=== PATIENT | female | born 1940 | race Caucasian/White ===

== ENCOUNTER 2016-08-23 10:48 | Emergency (ER) | payer MEDICARE ==
--- NOTE | 2016-08-23 11:07 | ER Document Report ---
ED Medical Screen (RME) - General Stated Complaint: LEG PAIN Mode of Arrival: Ambulatory Information source: Patient Notes: Patient presents to the emergency department with complaints of right lower leg pain since she fell on 's Day. Patient did have an x-ray by her primary care provider and it was negative. Patient continues to complain of pain to the right knee right medial lower leg. Reports increased pain with pressure, touch. Reports DVT in left leg 2-3 years. Not on anticoagulants at this time. + smoker. Denies fever vomiting diarrhea I have greeted and performed a rapid initial assessment of this patient. A comprehensive ED assessment and evaluation of the patient, analysis of test results and completion of the medical decision making process will be conducted by additional ED providers. TRAVEL OUTSIDE OF THE [place] IN LAST 30 DAYS: No - Related Data Allergies/Adverse Reactions: No Known Allergies Allergy (Verified 08/23/16 11:01) Past Medical History - Past Medical History Cardiac Medical History: Reports: Hx Hypertension, Hx Pulmonary Embolism Denies: Hx Atrial Fibrillation, Hx Congestive Heart Failure, Hx Coronary Artery Disease, Hx Heart Attack, Hx Hypercholesterolemia, Hx Peripheral Vascular Disease, Hx Heart Murmur Pulmonary Medical History: Reports: Hx Bronchitis, Hx COPD, Hx Pneumonia Denies: Hx Asthma, Hx Respiratory Failure, Hx Sleep Apnea, Hx Tuberculosis Malignancy Medical History: Denies: Hx Lung Cancer GI Medical History: Reports: Hx Gastroesophageal Reflux Disease - at one point was taking Tums but not anymore. Denies: Hx Crohn's Disease, Hx Hiatal Hernia, Hx Irritable Bowel, Hx Liver Failure, Hx Ulcer Musculoskeltal Medical History: Reports Hx Arthritis - Lower back, Denies Hx Fibromyalgia, Denies Hx Muscular Dystrophy Traumatic Medical History: Denies: Hx Fractures Past Surgical History: Reports: Hx Breast Surgery - R lumpectomy, Hx Cholecystectomy, Hx Hysterectomy. Denies: Hx Appendectomy, Hx Bowel Surgery, Hx Section, Hx Colostomy, Hx Coronary Artery Bypass Graft, Hx Gastric Bypass Surgery, Hx Herniorrhaphy, Hx Mastectomy, Hx Pacemaker, Hx Tubal Ligation - Immunizations Hx Diphtheria, Pertussis, Tetanus Vaccination: Yes Physical Exam - Vital signs Vitals: Temp Pulse Resp BP Pulse Ox 97.5 F 101 H 18 151/77 H 93 08/23/16 10:56 08/23/16 10:56 08/23/16 10:56 08/23/16 10:56 08/23/16 10:56 Course - Vital Signs Vital signs: Temp Pulse Resp BP Pulse Ox 97.5 F 101 H 18 151/77 H 93 08/23/16 10:56 08/23/16 10:56 08/23/16 10:56 08/23/16 10:56 08/23/16 10:56
--- NOTE | 2016-08-23 13:26 | XCELERA REPORT ---
[address] [address] Lower Extremity Venous Evaluation Name: DEIDRE BAXTER Age: 76 yrs Gender: Female : 1940 Patient Status: Preadmit Patient Location: ER Study Date: 08/23/2016 11:30 AM Procedure: Color flow and duplex imaging of the veins of the right lower extremity as well as the left Common Femoral vein. Reason For Study: rme-RLL pain, hx DVT Ordering Physician: NORIS JO Performed By: Sondra Montemayor Right Sided Venous Evaluation Enlarged, echogenic Greater Saphenous around the knee, also adjacent varicosities. non compressible with no Colour flow. Normal vessel filling wall to wall, compression and augmentation as well as Colour flow down to the infrageniculate veins. Left Sided Venous Evaluation The left common femoral vein is fully compressible. Spontaneous and phasic flow is present in the left common femoral vein. Critical Findings Called in to the ER at 1200. Interpretation Summary No duplex evidence of DVT or obstruction in the right lower extremity nor in the left Common Femoral vein. Superficial phlebitis on the right. : NORIS JO > Maurizio Waggoner
--- NOTE | 2016-08-23 13:41 | ER Document Report ---
ED General - General Chief Complaint: Leg Pain Stated Complaint: LEG PAIN Mode of Arrival: Ambulatory TRAVEL OUTSIDE OF THE [place] IN LAST 30 DAYS: No - HPI Patient complains to provider of: right lower leg pain Notes: Patient coming in for right lower extremity pain ongoing since the middle of June after a fall. Patient able ambulate states that taking any medication at home for the pain. Denies any trauma. Patient was able to ambulate here. Denies fevers chills nausea vomiting. - Related Data Allergies/Adverse Reactions: No Known Allergies Allergy (Verified 08/23/16 11:01) Past Medical History - General Information source: Patient - Social History Smoking Status: Current Every Day Smoker Chew tobacco use (# tins/day): Yes Family History: None Patient has suicidal ideation: No Patient has homicidal ideation: No - Past Medical History Cardiac Medical History: Reports: Hx Hypertension, Hx Pulmonary Embolism Denies: Hx Atrial Fibrillation, Hx Congestive Heart Failure, Hx Coronary Artery Disease, Hx Heart Attack, Hx Hypercholesterolemia, Hx Peripheral Vascular Disease, Hx Heart Murmur Pulmonary Medical History: Reports: Hx Bronchitis, Hx COPD, Hx Pneumonia Denies: Hx Asthma, Hx Respiratory Failure, Hx Sleep Apnea, Hx Tuberculosis Renal/ Medical History: Denies: Hx Peritoneal Dialysis Malignancy Medical History: Denies: Hx Lung Cancer GI Medical History: Reports: Hx Gastroesophageal Reflux Disease - at one point was taking Tums but not anymore. Denies: Hx Crohn's Disease, Hx Hiatal Hernia, Hx Irritable Bowel, Hx Liver Failure, Hx Ulcer Musculoskeltal Medical History: Reports Hx Arthritis - Lower back, Denies Hx Fibromyalgia, Denies Hx Muscular Dystrophy Traumatic Medical History: Denies: Hx Fractures Past Surgical History: Reports: Hx Breast Surgery - R lumpectomy, Hx Cholecystectomy, Hx Hysterectomy. Denies: Hx Appendectomy, Hx Bowel Surgery, Hx Section, Hx Colostomy, Hx Coronary Artery Bypass Graft, Hx Gastric Bypass Surgery, Hx Herniorrhaphy, Hx Mastectomy, Hx Pacemaker, Hx Tubal Ligation - Immunizations Hx Diphtheria, Pertussis, Tetanus Vaccination: Yes Hx Pneumococcal Vaccination: 06/24/11 Review of Systems - Review of Systems Constitutional: No symptoms reported EENT: No symptoms reported Cardiovascular: No symptoms reported Respiratory: No symptoms reported Gastrointestinal: No symptoms reported Genitourinary: No symptoms reported Female Genitourinary: No symptoms reported Musculoskeletal: Other - Lower extremity pain right Skin: No symptoms reported Hematologic/Lymphatic: No symptoms reported Neurological/Psychological: No symptoms reported Physical Exam - Vital signs Vitals: Temp Pulse Resp BP Pulse Ox 97.5 F 101 H 18 151/77 H 93 08/23/16 10:56 08/23/16 10:56 08/23/16 10:56 08/23/16 10:56 08/23/16 10:56 Interpretation: Normal - General General appearance: Appears well, Alert - HEENT Head: Normocephalic, Atraumatic Eyes: Normal Pupils: PERRL - Respiratory Respiratory status: No respiratory distress Chest status: Nontender Breath sounds: Normal Chest palpation: Normal - Cardiovascular Rhythm: Regular Heart sounds: Normal auscultation Murmur: No - Abdominal Inspection: Normal Distension: No distension Bowel sounds: Normal Tenderness: Nontender Organomegaly: No organomegaly - Back Back: Normal, Nontender - Extremities General upper extremity: Normal inspection, Nontender, Normal color, Normal ROM , Normal temperature General lower extremity: Nontender, Normal color, Normal ROM, Normal temperature , Normal weight bearing. No: Normal inspection - Patient with palpable varicosities painful otherwise no overt swelling, Celine's sign - Neurological Neuro grossly intact: Yes Cognition: Normal Orientation: AAOx4 Gregory Coma Scale Eye Opening: Spontaneous Gregory Coma Scale Verbal: Oriented [place] Coma Scale Motor: Obeys Commands [place] Coma Scale Total: 15 Speech: Normal Motor strength normal: LUE, RUE, LLE, RLE Sensory: Normal - Psychological Associated symptoms: Normal affect, Normal mood - Skin Skin Temperature: Warm Skin Moisture: Dry Skin Color: Normal Course - Re-evaluation Re-evalutation: 08/23/16 13:52 Patient's ultrasound shows superficial thrombophlebitis which was confirmed with Dr. Waggoner reading. Patient was educated about disease pathology discharged home 08/23/16 13:52 - Vital Signs Vital signs: Temp Pulse Resp BP Pulse Ox 97.5 F 101 H 18 151/77 H 93 08/23/16 10:56 08/23/16 10:56 08/23/16 10:56 08/23/16 10:56 08/23/16 10:56 Discharge - Discharge Clinical Impression: Superficial thrombophlebitis Qualifiers: Superficial thrombophlebitis-Involved body area: lower extremity Laterality: right Qualified Code(s): I80.01 - Phlebitis and thrombophlebitis of superficial vessels of right lower extremity Condition: Good Instructions: Superficial Phlebitis ([facility]), Oral Narcotic Medication ([facility]) Additional Instructions: Your ultrasound today shows signs of superficial femoral phlebitis. Basically you have small blood clots in the superficial veins of the leg please apply warm compresses take anti-inflammatory medication I would recommend you're taking anti-inflammatory medication such as Motrin Naprosyn that she only take it for approximately 72 hours before you give herself approximately a 48 hour break to prevent any kind of gastritis Follow-up with your doctor in 1-2 weeks Prescriptions: Ibuprofen [Motrin 600 mg Tablet] 600 mg PO Q8HP PRN #90 tablet PRN Reason: Hydrocodone Bit/Acetaminophen [Hydrocodon-Acetaminophen 5-325] 1 each PO Q6 #20 tablet Forms: Return to Work
[2016-08-23 13:56] VITALS: BP 146/76
== END 2016-08-23 13:56 | disposition home or self-care (01) ==
LOC: ER 10:48
DX: I80.01 Phlebitis and thrombophlebitis of superficial vessels of right lower extremity (principal); M79.661 Pain in right lower leg; J44.9 Chronic obstructive pulmonary disease, unspecified; F17.200 Nicotine dependence, unspecified, uncomplicated; I10 Essential (primary) hypertension; Z86.711 Personal history of pulmonary embolism
CPT/HCPCS: 93971; 99283

== ENCOUNTER 2016-08-26 17:33 | Emergency (ER) | payer MEDICARE ==
[2016-08-26] MEDS ORDERED: ASPIRIN 81 MG TABLET, CHEWABLE PO ONE (17:36)
--- NOTE | 2016-08-26 17:54 | ER Document Report ---
ED Medical Screen (RME) - General Stated Complaint: CHEST PAIN Time seen by provider: 17:51 Mode of Arrival: Wheelchair Information source: Patient Notes: 76-year-old female presents to ED for complain of left sided chest pain shortness of breath. She states she had chest pain yesterday and last night it went away during the night and then this morning it started back again. His pain is getting worse. She has a history of COPD. She is on 3 L of oxygen nasal cannula. She also has a history of superficial blood clots in her legs that was diagnosed a couple days ago. She is not on blood thinners. Patient denies any history of heart problems CHF cholesterol. I have greeted and performed a rapid initial assessment of this patient. A comprehensive ED assessment and evaluation of the patient, analysis of test results and completion of medical decision making process will be conducted by an additional ED providers. TRAVEL OUTSIDE OF THE [place] IN LAST 30 DAYS: No - Related Data Allergies/Adverse Reactions: No Known Allergies Allergy (Verified 08/23/16 11:01) Past Medical History - Past Medical History Cardiac Medical History: Reports: Hx Hypertension, Hx Pulmonary Embolism Denies: Hx Atrial Fibrillation, Hx Congestive Heart Failure, Hx Coronary Artery Disease, Hx Heart Attack, Hx Hypercholesterolemia, Hx Peripheral Vascular Disease, Hx Heart Murmur Pulmonary Medical History: Reports: Hx Bronchitis, Hx COPD, Hx Pneumonia Denies: Hx Asthma, Hx Respiratory Failure, Hx Sleep Apnea, Hx Tuberculosis Renal/ Medical History: Denies: Hx Peritoneal Dialysis Malignancy Medical History: Denies: Hx Lung Cancer GI Medical History: Reports: Hx Gastroesophageal Reflux Disease - at one point was taking Tums but not anymore. Denies: Hx Crohn's Disease, Hx Hiatal Hernia, Hx Irritable Bowel, Hx Liver Failure, Hx Ulcer Musculoskeltal Medical History: Reports Hx Arthritis - Lower back, Denies Hx Fibromyalgia, Denies Hx Muscular Dystrophy Traumatic Medical History: Denies: Hx Fractures Past Surgical History: Reports: Hx Breast Surgery - R lumpectomy, Hx Cholecystectomy, Hx Hysterectomy. Denies: Hx Appendectomy, Hx Bowel Surgery, Hx Section, Hx Colostomy, Hx Coronary Artery Bypass Graft, Hx Gastric Bypass Surgery, Hx Herniorrhaphy, Hx Mastectomy, Hx Pacemaker, Hx Tubal Ligation - Immunizations Hx Diphtheria, Pertussis, Tetanus Vaccination: Yes Physical Exam - Vital signs Vitals: Temp Pulse Resp BP Pulse Ox 99.0 F 62 26 H 174/82 H 93 08/26/16 17:48 08/26/16 17:48 08/26/16 17:48 08/26/16 17:48 08/26/16 17:48 Course - Vital Signs Vital signs: Temp Pulse Resp BP Pulse Ox 99.0 F 62 26 H 174/82 H 93 08/26/16 17:48 08/26/16 17:48 08/26/16 17:48 08/26/16 17:48 08/26/16 17:48
[2016-08-26 18:13] LABS: HEMATOCRIT 44.4 % (36.0-47.0); HEMOGLOBIN 14.2 g/dL (12.0-15.5); HGB HCT DIFFERENCE -1.8; MEAN CORPUSCULAR HEMOGLOBIN 28.8 pg (27.0-33.4); MEAN CORPUSCULAR VOLUME 90 fl (80-97); RED BLOOD COUNT 4.94 10^6/uL (3.72-5.28); WHITE BLOOD COUNT 16.5 10^3/uL (4.0-10.5)
[2016-08-26 18:30] LABS: ALANINE AMINOTRANSFERASE 33 U/L (9-52); ALBUMIN 4.1 g/dL (3.5-5.0); ALKALINE PHOSPHATASE 105 U/L (38-126); ANION GAP 13 (5-19); ASPARTATE AMINO TRANSFERASE 28 U/L (14-36); BILIRUBIN,DIRECT 0.4 mg/dL (0.0-0.4); BILIRUBIN,TOTAL 1.2 mg/dL (0.2-1.3); BLOOD UREA NITROGEN 19 mg/dL (7-20); CALCIUM 10.1 mg/dL (8.4-10.2); CARBON DIOXIDE 32 mmol/L (22-30); CHLORIDE 96 mmol/L (98-107); CREATINE KINASE 40 U/L (30-135); CREATININE RESULT 1.02 mg/dL (0.52-1.25); GLUCOSE 144 mg/dL (75-110); POTASSIUM 4.3 mmol/L (3.6-5.0); SODIUM 141.4 mmol/L (137-145); TOTAL PROTEIN 7.1 g/dL (6.3-8.2)
[2016-08-26 18:35] LABS: BAND NEUTROPHILS % (MANUAL) 1 % (3-5); BASOPHILS % (MANUAL) 1 % (0-2); EOSINOPHILS % (MANUAL) 1 % (0-6); LYMPHOCYTES % (MANUAL) 6 % (13-45); TOTAL CELLS COUNTED 100
[2016-08-26 18:36] LABS: ANISOCYTOSIS SLIGHT; POLYCHROMASIA SLIGHT
[2016-08-26 18:37] LABS: PLATELET CLUMPS PRESENT
[2016-08-26 18:47] LABS: CREATINE KINASE MB < 0.22 ng/mL (<4.55); TROPONIN I < 0.012 ng/mL
[2016-08-26] MEDS ORDERED: IPRATROPIUM/ALBUTEROL 0.5-2.5 MG/3 ML AMPUL NEB ONE (19:56)
[2016-08-26] MEDS ORDERED: PREDNISONE 20 MG TABLET PO ONE (19:56)
[2016-08-26] MEDS ORDERED: AZITHROMYCIN 250 MG TABLET PO ONE (20:00)
--- NOTE | 2016-08-26 20:00 | ER Document Report ---
ED General - General Chief Complaint: Chest Pain Stated Complaint: CHEST PAIN Mode of Arrival: Wheelchair Notes: Patient is a 76-year-old female with past medical history of COPD with 2-3 L of oxygen dependence at all time who presents with increased shortness of breath and left-sided chest discomfort. States her symptoms are beginning progressively worse over the last 2 days. Describes the pain as being located along her left lower ribs. The pain is described as a sharp, stabbing pain it is intermittent in nature. States it seems to be worsened when she is having persistent coughing. Has had similar symptoms in the past with COPD exacerbations. She's been using her nebulizers at home without improvement of her symptoms. She has not seen her primary care doctor. She denies any history of pulmonary embolus but was recently diagnosed with a superficial lower extremity clot that did not require anticoagulation. She had an ultrasound less than one week ago for bilateral lower extremities did not demonstrate any evidence of DVT. She denies any pleuritic pain. No history of aortic pathology. TRAVEL OUTSIDE OF THE [place] IN LAST 30 DAYS: No - Related Data Allergies/Adverse Reactions: No Known Allergies Allergy (Verified 08/23/16 11:01) Past Medical History - General Information source: Patient - Social History Smoking Status: Current Every Day Smoker Chew tobacco use (# tins/day): No Frequency of alcohol use: None Drug Abuse: None Lives with: Family Family History: None Patient has suicidal ideation: No Patient has homicidal ideation: No - Past Medical History Cardiac Medical History: Reports: Hx Hypertension, Hx Pulmonary Embolism Denies: Hx Atrial Fibrillation, Hx Congestive Heart Failure, Hx Coronary Artery Disease, Hx Heart Attack, Hx Hypercholesterolemia, Hx Peripheral Vascular Disease, Hx Heart Murmur Pulmonary Medical History: Reports: Hx Bronchitis, Hx COPD, Hx Pneumonia Denies: Hx Asthma, Hx Respiratory Failure, Hx Sleep Apnea, Hx Tuberculosis Renal/ Medical History: Denies: Hx Peritoneal Dialysis Malignancy Medical History: Denies: Hx Lung Cancer GI Medical History: Reports: Hx Gastroesophageal Reflux Disease - at one point was taking Tums but not anymore. Denies: Hx Crohn's Disease, Hx Hiatal Hernia, Hx Irritable Bowel, Hx Liver Failure, Hx Ulcer Musculoskeltal Medical History: Reports Hx Arthritis - Lower back, Denies Hx Fibromyalgia, Denies Hx Muscular Dystrophy Traumatic Medical History: Denies: Hx Fractures Past Surgical History: Reports: Hx Breast Surgery - R lumpectomy, Hx Cholecystectomy, Hx Hysterectomy. Denies: Hx Appendectomy, Hx Bowel Surgery, Hx Section, Hx Colostomy, Hx Coronary Artery Bypass Graft, Hx Gastric Bypass Surgery, Hx Herniorrhaphy, Hx Mastectomy, Hx Pacemaker, Hx Tubal Ligation - Immunizations Hx Diphtheria, Pertussis, Tetanus Vaccination: Yes Hx Pneumococcal Vaccination: 06/24/11 Review of Systems - Review of Systems Notes: Constitutional: Negative for fever. HENT: Negative for sore throat. Eyes: Negative for visual changes. Cardiovascular: Positive for chest pain. Respiratory: Positive for shortness of breath. Gastrointestinal: Negative for abdominal pain, vomiting or diarrhea. Genitourinary: Negative for dysuria. Musculoskeletal: Negative for back pain. Skin: Negative for rash. Neurological: Negative for headaches, weakness or numbness. 10 point ROS negative except as marked above and in HPI. Physical Exam - Vital signs Vitals: Temp Pulse Resp BP Pulse Ox 99.0 F 62 26 H 174/82 H 93 08/26/16 17:48 08/26/16 17:48 08/26/16 17:48 08/26/16 17:48 08/26/16 17:48 Interpretation: Hypertensive, Tachypneic Notes: PHYSICAL EXAMINATION: GENERAL: Well-appearing, well-nourished and in no acute distress. HEAD: Atraumatic, normocephalic. EYES: Pupils equal round and reactive to light, extraocular movements intact, sclera anicteric, conjunctiva are normal. ENT: nares patent, oropharynx clear without exudates. Moist mucous membranes. NECK: Normal range of motion, supple without lymphadenopathy LUNGS: Mildly increased work of breathing. Somewhat diminished air movement bilaterally. Prolonged expiratory phase with end expiratory wheeze. Chest wall: Pain on palpation of the left lower ribs HEART: Regular rate and rhythm without murmurs ABDOMEN: Soft, nontender, normoactive bowel sounds. No guarding, no rebound. No masses appreciated. EXTREMITIES: Normal range of motion, no pitting or edema. No cyanosis. NEUROLOGICAL: No focal neurological deficits. Moves all extremities spontaneously and on command. PSYCH: Normal mood, normal affect. SKIN: Warm, Dry, normal turgor, no rashes or lesions noted. Course - Re-evaluation Re-evalutation: 08/26/16 19:59 Patient presents with a mild exacerbation of their baseline COPD. patient did also complain of some mild chest pain which appears to likely be musculoskeletal she does have reproducible pain on palpation of the area where she is complaining which is over her left lower ribs. The pain also completely resolved after treatment with nebulizers here in the emergency department. I do not suspect an acute pulmonary embolusin the absence of tachycardia, no pleuritic pain, and intermittent nature of that discomfort. Mild wheezing at time of presentation but vitals do not show significant hypoxemia or tachypnea. No retractions. Patient did clinically improve after receiving nebulizers here in the emergency department. Chest x-ray without evidence of an acute pneumonia. Laboratories do not show acute kidney injury or significant leukocytosis. Patient able to ambulate without any respiratory distress. Based on patient's overall reassuring assessment, I believe they are stable for outpatient management with steroids and oral antibiotics. Patient has nebulizers at home. I do not suspect an acute alternative pathology at this time based on history and exam including acute pulmonary embolus, ACS, pneumothorax, or aortic dissection. At this time will discharge with return precautions and follow-up recommendations. Verbal discharge instructions given a the bedside and opportunity for questions given. Medication warnings reviewed. Patient is in agreement with this plan and has verbalized understanding of return precautions and the need for primary care follow-up in the next 24-72 hours. - Vital Signs Vital signs: Temp Pulse Resp BP Pulse Ox 99.0 F 62 19 120/67 95 08/26/16 17:48 08/26/16 17:48 08/26/16 22:12 08/26/16 22:12 08/26/16 22:12 - Laboratory Result Diagrams: 08/26/16 18:00 08/26/16 18:00 Laboratory results interpreted by me: 08/26/16 08/26/16 18:00 18:00 WBC 16.5 H RDW 15.0 H Seg Neuts % (Manual) 88 H Band Neutrophils % 1 L Lymphocytes % (Manual) 6 L Abs Neuts (Manual) 14.7 H Chloride 96 L Carbon Dioxide 32 H Est GFR (Non-Af Amer) 53 L Glucose 144 H - Diagnostic Test Radiology reviewed: Image reviewed, Reports reviewed Radiology results interpreted by me: 08/26/16 22:19 Chest x-ray: No acute infiltrate or pneumothorax - EKG Interpretation by Me Additional EKG results interpreted by me: 08/27/16 03:34 Sinus tachycardia. Rate 109. No ST elevations or depressions. QTC is 399. PVCs are present Discharge - Discharge Clinical Impression: COPD exacerbation, Chest wall pain Condition: Good Disposition: HOME, SELF-CARE Additional Instructions: You were seen for a COPD exacerbation. Your symptoms improved with treatment here in the emergency department. However, it is very important that you return to the emergency department immediately if you began to have worsening difficulty breathing that does not respond to your normal home nebulizers. You are also being sent home on a five-day course of steroids that you should start taking tomorrow. Please also take the antibiotics as prescribed. Please also follow closely with your primary care physician. You should eturn to emergency department if you develop fever greater than 101, persistent cough, persistent vomiting, pass out, or any other symptoms that are concerning to you. Prescriptions: Azithromycin 250 mg PO DAILY #4 tablet Prednisone [Deltasone 20 mg Tablet] 3 tab PO DAILY 5 Days
[2016-08-26] MEDS ORDERED: OXYCODONE-ACETAMINOPHEN 5-325 MG TABLET PO ONE (20:01)
--- NOTE | 2016-08-26 20:45 | EKG REPORT ---
SEVERITY:- ABNORMAL ECG - SINUS TACHYCARDIA MULTIPLE VENTRICULAR PREMATURE COMPLEXES FIRST DEGREE AV BLOCK : Confirmed by: Stephania Haynes 26-Aug-2016 20:45:01
[2016-08-26 22:29] VITALS: BP 120/67
== END 2016-08-26 22:44 | disposition home or self-care (01) ==
LOC: ER 17:33
DX: J44.1 Chronic obstructive pulmonary disease with (acute) exacerbation (principal); R07.89 Other chest pain; Z99.81 Dependence on supplemental oxygen; F17.200 Nicotine dependence, unspecified, uncomplicated
CPT/HCPCS: 93005; 94640; 99285; 36415; 82553; 82550; 85025; 80053; 84484; 71010; 93010; A9270 ×5; J7512; J7620

== ENCOUNTER 2017-02-15 10:50 | Inpatient (IN) | payer MEDICARE ==
[2017-02-15] MEDS ORDERED: METHYLPREDNISOLONE INJ 125 MG/2 ML SDV IV ONE (11:27)
[2017-02-15] MEDS ORDERED: IPRATROPIUM/ALBUTEROL 0.5-2.5 MG/3 ML AMPUL NEB ONE (11:27)
[2017-02-15] MEDS ORDERED: PIPERACILLIN/TAZOBACTAM 3.375 GM VIAL IV ONE (11:28)
--- NOTE | 2017-02-15 11:33 | ER Document Report ---
ED Respiratory Problem - General Chief Complaint: Breathing Difficulty Stated Complaint: DIFFICULTY BREATHING Time Seen by Provider: 02/15/17 11:26 TRAVEL OUTSIDE OF THE [place] IN LAST 30 DAYS: No - HPI Notes: 77-year-old oxygen dependent female with history of COPD presents with increasing shortness of breath slowly over 4 days much worse in the last 2 days. She has a dry cough. Moderate symptoms worse with exertion. She uses oxygen at 2 L/min occasionally will increase to 3 if needed. Denies fever. She has noticed increased swelling of her left lower extremity with increased redness over the last week as well. Denies any new specific pain. - Related Data Allergies/Adverse Reactions: No Known Allergies Allergy (Verified 02/15/17 11:00) Past Medical History - Social History Smoking Status: Current Every Day Smoker Family History: None, Reviewed & Not Pertinent Patient has suicidal ideation: No Patient has homicidal ideation: No - Past Medical History Cardiac Medical History: Reports: Hx Hypertension, Hx Pulmonary Embolism Denies: Hx Atrial Fibrillation, Hx Congestive Heart Failure, Hx Coronary Artery Disease, Hx Heart Attack, Hx Hypercholesterolemia, Hx Peripheral Vascular Disease, Hx Heart Murmur Pulmonary Medical History: Reports: Hx Bronchitis, Hx COPD, Hx Pneumonia Denies: Hx Asthma, Hx Respiratory Failure, Hx Sleep Apnea, Hx Tuberculosis Renal/ Medical History: Denies: Hx Peritoneal Dialysis Malignancy Medical History: Denies: Hx Lung Cancer GI Medical History: Reports: Hx Gastroesophageal Reflux Disease - at one point was taking Tums but not anymore. Denies: Hx Crohn's Disease, Hx Hiatal Hernia, Hx Irritable Bowel, Hx Liver Failure, Hx Ulcer Musculoskeltal Medical History: Reports Hx Arthritis - Lower back, Denies Hx Fibromyalgia, Denies Hx Muscular Dystrophy Traumatic Medical History: Denies: Hx Fractures Past Surgical History: Reports: Hx Breast Surgery - R lumpectomy, Hx Cholecystectomy, Hx Hysterectomy. Denies: Hx Appendectomy, Hx Bowel Surgery, Hx Section, Hx Colostomy, Hx Coronary Artery Bypass Graft, Hx Gastric Bypass Surgery, Hx Herniorrhaphy, Hx Mastectomy, Hx Pacemaker, Hx Tubal Ligation - Immunizations Hx Diphtheria, Pertussis, Tetanus Vaccination: Yes Hx Pneumococcal Vaccination: 06/24/11 Review of Systems - Review of Systems -: Yes All other systems reviewed and negative Physical Exam - Vital signs Vitals: Temp Pulse Resp BP Pulse Ox 98.4 F 107 H 28 H 150/80 H 86 L 02/15/17 11:00 02/15/17 11:00 02/15/17 11:00 02/15/17 11:00 02/15/17 11:00 - Notes Notes: Physical Exam: GENERAL: VS as per nursing doc. chronically ill appearing in mild to moderate respiratory distress. Audible wheezing noted. HEAD: Atraumatic, normocephalic. EYES: Pupils equal round and reactive to light, extraocular movements intact, sclera anicteric, no conjunctival injection or discharge. ENT: Nares patent, oropharynx clear without exudates. Slightly dry mucous membranes. NECK: Normal range of motion, supple without lymphadenopathy. LUNGS: Breath sounds are coarse and diffuse wheezing is noted. Breath sounds are decreased bilaterally. HEART: Normal S1S2. Regular rate and rhythm without murmurs. Equal peripheral pulses. ABDOMEN: Soft, non-tender. EXTREMITIES: 4+ left lower extremity edema with erythema of the pretibial region. There is a minimal amount of serous drainage. 2-3+ right lower extremity edema. NEUROLOGICAL: Normal speech. Normal sensory and motor exams. No gross cerebellar abnormalities. PSYCH: Normal mood, normal affect. SKIN: Warm, dry, no cyanosis, left lower extremity lower extremity abrasion noted. Cap refill < 2 sec. Course - Re-evaluation Re-evalutation: 02/15/17 14:05 Patient is feeling much better overall. Still having some wheezing and still some mild shortness of breath. Her pH is normal though her PCO2 is slightly above where it normally is. I attempted to talk to Dr. Monzon but he was unavailable. We will call him back. 02/15/17 14:[address] Monzon who will come see the patient. Will place the patient on telemetry. - Vital Signs Vital signs: Temp Pulse Resp BP Pulse Ox 98.4 F 107 H 21 H 141/72 H 98 02/15/17 11:00 02/15/17 11:00 02/15/17 14:01 02/15/17 14:01 02/15/17 14:01 - Laboratory Result Diagrams: 02/15/17 11:14 02/15/17 11:14 Laboratory results interpreted by me: 02/15/17 02/15/17 02/15/17 11:14 11:14 11:14 RDW 16.2 H Seg Neutrophils % 89.3 H Lymphocytes % 5.6 L VBG pCO2 64.4 H VBG HCO3 36.1 H Carbon Dioxide 31 H Est GFR (Non-Af Amer) 59 L Glucose 153 H Direct Bilirubin 0.5 H - Diagnostic Test Radiology reviewed: Image reviewed, Reports reviewed - EKG Interpretation by Me Rhythm: NSR - Rate 94, first-degree AV block, no clear ischemia. QRS of normal duration. Discharge - Discharge Clinical Impression: COPD exacerbation, Cellulitis of left lower extremity Condition: Fair Disposition: ADMITTED INPATIENT Admitting Provider: Dr. Buchanan Unit Admitted: Telemetry Referrals: ASHOK WOOD MD [Primary Care Provider] - Follow up as needed
[2017-02-15 11:35] LABS: ABSOLUTE EOSINOPHILS # (AUTO) 0.1 10^3/uL (0.0-0.6); ABSOLUTE LYMPHOCYTES (AUTO) 0.5 10^3/uL (0.5-4.7); ABSOLUTE MONOCYTES (AUTO) 0.3 10^3/uL (0.1-1.4); ABSOLUTE NEUT (AUTO) 7.3 10^3/uL (1.7-8.2); BASOPHILS % (AUTO) 0.3 % (0-2); EOSINOPHILS % (AUTO) 1.4 % (0-6); HEMATOCRIT 39.4 % (36.0-47.0); HEMOGLOBIN 12.9 g/dL (12.0-15.5); HGB HCT DIFFERENCE -0.7; LYMPHOCYTES % (AUTO) 5.6 % (13-45); MEAN CORPUSCULAR HEMOGLOBIN 28.8 pg (27.0-33.4); MEAN CORPUSCULAR HGB CONC 32.7 g/dL (32.0-36.0); MEAN CORPUSCULAR VOLUME 88 fl (80-97); MONOCYTES % (AUTO) 3.4 % (3-13); RED BLOOD COUNT 4.47 10^6/uL (3.72-5.28); RED CELL DISTRIBUTION WIDTH 16.2 % (11.5-14.0); SEGMENTED NEUTROPHILS % (AUTO) 89.3 % (42-78); WHITE BLOOD COUNT 8.2 10^3/uL (4.0-10.5)
[2017-02-15 11:37] LABS: VENOUS BLOOD BASE EXCESS 8.5 mmol/L; VENOUS BLOOD HCO3 36.1 mmol/L (20-32); VENOUS BLOOD PCO2 64.4 mmHg (35-63); VENOUS BLOOD PH 7.37 (7.30-7.42)
[2017-02-15 11:44] LABS: PROTHROMBIN TIME 12.3 SEC (11.4-15.4)
[2017-02-15 11:50] LABS: ALANINE AMINOTRANSFERASE 22 U/L (9-52); ALBUMIN 4.1 g/dL (3.5-5.0); ALKALINE PHOSPHATASE 103 U/L (38-126); ANION GAP 9 (5-19); ASPARTATE AMINO TRANSFERASE 19 U/L (14-36); BILIRUBIN,DIRECT 0.5 mg/dL (0.0-0.4); BILIRUBIN,TOTAL 0.6 mg/dL (0.2-1.3); BLOOD UREA NITROGEN 13 mg/dL (7-20); CARBON DIOXIDE 31 mmol/L (22-30); CHLORIDE 99 mmol/L (98-107); CREATININE RESULT 0.92 mg/dL (0.52-1.25); GLUCOSE 153 mg/dL (75-110); POTASSIUM 4.7 mmol/L (3.6-5.0); TOTAL PROTEIN 7.2 g/dL (6.3-8.2)
--- NOTE | 2017-02-15 12:17 | RADIOLOGY REPORT (SQ) ---
EXAM DESCRIPTION: CHEST SINGLE VIEW COMPLETED DATE/TIME: 02/15/2017 12:09 pm REASON FOR STUDY: shortness of breath COMPARISON: 08/26/2016. EXAM PARAMETERS: NUMBER OF VIEWS: One view. TECHNIQUE: Single frontal radiographic view of the chest acquired. RADIATION DOSE: NA LIMITATIONS: None. FINDINGS: LUNGS AND PLEURA: Mild interstitial prominence. No opacities, masses or pneumothorax. No pleural effusion. MEDIASTINUM AND HILAR STRUCTURES: No masses. Contour normal. HEART AND VASCULAR STRUCTURES: Heart upper limits of normal in size. Normal vasculature. BONES: No acute findings. HARDWARE: None in the chest. OTHER: No other significant finding. IMPRESSION: NO ACUTE RADIOGRAPHIC FINDING IN THE CHEST. TECHNICAL DOCUMENTATION: JOB ID: [id number]
--- NOTE | 2017-02-15 12:53 | EKG REPORT ---
SEVERITY:- ABNORMAL ECG - SINUS RHYTHM FIRST DEGREE AV BLOCK : Confirmed by: Uri Parish MD 15-Feb-2017 12:53:14
[2017-02-15 14:20] LABS: APPEARANCE,URINE SLIGHTLY-CLOUDY; BILIRUBIN,URINE NEGATIVE (NEGATIVE); GLUCOSE, URINE NEGATIVE (NEGATIVE); KETONES,URINE NEGATIVE (NEGATIVE); LEUKOCYTE ESTERASE,URINE SMALL (NEGATIVE); NITRITE,URINE NEGATIVE (NEGATIVE); PROTEIN,URINE NEGATIVE (NEGATIVE); URINE SPECIFIC GRAVITY 1.004; UROBILINOGEN,URINE NEGATIVE mg/dL (<2.0)
--- NOTE | 2017-02-15 14:45 | XCELERA REPORT ---
[address] [address] Lower Extremity Venous Evaluation Name: DEIDRE BAXTER Age: 77 yrs Gender: Female : 1940 Patient Status: Emergency Patient Location: ER Study Date: 02/15/2017 12:08 PM Procedure: Color flow and duplex imaging of the veins of the left lower extremity as well as the right Common Femoral vein. Reason For Study: LLE swelling Ordering Physician: NAYELI MORTON Performed By: Kya Flores Right Sided Venous Evaluation The right common femoral vein is fully compressible. Spontaneous and phasic flow is present in the right common femoral vein. Left Sided Venous Evaluation extensive soft tissue edema in left leg. Normal vessel filling wall to wall, compression and augmentation as well as Colour flow down to the infrageniculate veins. Interpretation Summary No duplex evidence of DVT or obstruction in the left lower extremity nor in the right Common Femoral vein. : NAYELI MORTON [place]
[2017-02-15] MEDS ORDERED: ACETAMINOPHEN 325 MG TABLET PO PRN (15:22)
--- NOTE | 2017-02-15 15:47 | PDOC H&P ---
History of Present Illness Admission Date/PCP: 02/15/17 14:48 ASHOK WOOD MD History of Present Illness: DEIDRE BAXTER is a 77 year old white female with a past medical history significant for hypertension and COPD who presents to the service with complaints of shortness of breath and left lower extremity redness and swelling. The patient states that she is usually on oxygen at home at 2 L/min 24 hours a day. She states that over the last 2 days she has developed a dry cough and shortness of breath that has become progressively worse. She tried using her inhalers at home without any success. She contacted her primary care physician who prescribed her Zithromax and Solu-Medrol as an outpatient. The patient had only taken the medications for about a day when she felt worse and decided to come into the emergency room. In addition to this, the patient developed left lower extremity swelling or redness. She states she does not have a history of heart failure to account for her swelling but did have concerns that she could have a blood clot. She states that she has been eating and drinking well at home. Other than dyspnea on exertion and her left lower leg issues she has had no other troubles. Past Medical History Cardiac Medical History: Reports: Hypertension, Pulmonary Embolism Pulmonary Medical History: Reports: Bronchitis, Chronic Obstructive Pulmonary Disease (COPD), Pneumonia GI Medical History: Reports: Gastroesophageal Reflux Disease - at one point was taking Tums but not anymore Musculoskeltal Medical History: Reports: Arthritis - Lower back Psychiatric Medical History: Reports: None Past Surgical History Past Surgical History: Reports: Cholecystectomy, Hysterectomy Social History Information Source: Patient Smoking Status: Current Every Day Smoker - The patient currently smokes 1 pack every 3 days. Frequency of Alcohol Use: None Hx Recreational Drug Use: No Hx Prescription Drug Abuse: No Past Social History Note: Patient started smoking in her 30s. At most she would get up to 2 packs per day. - Advance Directive Resuscitation Status: Do Not Resuscitate Family History Family History: Malignancy Parental Family History Reviewed: Yes Children Family History Reviewed: Yes Sibling(s) Family History Reviewed.: Yes Medication/Allergy Home Medications: Albuterol Sulfate [Albuterol Sulfate 2.5mg/3 mL] 1 vial IH QIDP PRN 02/15/17 Albuterol Sulfate [Proair HFA] 2 puff IH Q4HP PRN 02/15/17 Aspirin [Aspirin 325 mg Tablet] 325 mg PO DAILY 02/15/17 Azithromycin [Zithromax] 250 mg PO ASDIR 02/15/17 Budesonide/Formoterol Fumarate [Symbicort Hfa 160-4.5 Mcg Inhaler 6 gm] 2 puff IH Q12 02/15/17 Fluticasone Propionate [Flonase Nasal Clanton 50 Mcg/Clanton 16 gm] 2 sprays NASL DAILYP PRN 02/15/17 Hydrochlorothiazide [Hydrodiuril 12.5 mg Capsule] 12.5 mg PO DAILY 02/15/17 Magnesium Oxide [Mag-Ox 400 mg Tablet] 400 mg PO DAILY 02/15/17 Methylprednisolone [Medrol Dosepack (4 mg/Tab) 21 Tab/Dosepak] 4 mg PO ASDIR Allergies/Adverse Reactions: No Known Allergies Allergy (Verified 02/15/17 11:00) Review of Systems Review of Systems: Review of systems is positive for that already mentioned in the HPI. In addition to this she denies unexplained weight loss or weight gain, fevers, chills, nausea, vomiting, diarrhea, constipation, blood in stool, blood in the urine, coughing up blood, throwing up blood, abdominal pain, visual disturbances other than needing eyeglasses, dizziness. She does however admit to arthritic pains that she says are usual for her. Physical Exam Vital Signs: Temp Pulse Resp BP Pulse Ox 98.4 F 107 H 21 H 141/72 H 98 02/15/17 11:00 02/15/17 11:00 02/15/17 14:01 02/15/17 14:01 02/15/17 14:01 GENERAL: This is a well-developed and nourished appearing obese white female resting in bed currently in no acute distress. HEENT: Normocephalic, atraumatic. Trachea is midline. Moist mucous membranes. mallampati 4. HEART: Tachycardic at the bedside. No murmurs, rubs or gallops. LUNGS: Coarse breath sounds bilaterally throughout with equal rise and fall of the chest. Breathing is not currently labored. ABDOMEN: Soft, nontender, nondistended, obese with normoactive bowel sounds EXTREMETIES: No clubbing, cyanosis. 2+ pitting edema bilaterally. 2+ peripheral pulses bilaterally. NEURO: Awake, alert and oriented 3. Cranial nerves II through XII are grossly intact. Skin: Patient's left lower extremity is quite red and erythematous. The redness extends from the ankle up through the shins. No outline has been made thus far around the area. Results Impressions: Chest X-Ray 02/15/17 11:21 IMPRESSION: NO ACUTE RADIOGRAPHIC FINDING IN THE CHEST. Assessment & Plan - Diagnosis (1) Acute and chronic respiratory failure with hypoxia Plan: Patient is currently on oxygen via nasal cannula. She is breathing easily at the moment. She was hypoxemic down to 86% down in the emergency room. She seems to be doing and feeling better now. Continue albuterol nebulizers every 4 hours for now. Continue the patient's Symbicort here in the hospital. Patient also has as needed nebulizer treatments on order as well. Her respiratory is secondary to underlying COPD exacerbation (2) COPD exacerbation Plan: At this time the patient is receiving albuterol nebulizers. She received a dose of Solu-Medrol down in the emergency room we will continue this at 40 twice a day. She had a dose of Zithromax as an outpatient and has been given Zosyn to cover not only for anything in the lung but also her lower extremity cellulitis. I agree with this for now. No addition of vancomycin for now. Monitor white blood cell count. (3) Cellulitis of left lower extremity Plan: Continue Zosyn. I will have the nursing staff outline the patient's cellulitis. Inspection of her toes does not reveal any obvious fungal elements. (4) GERD (gastroesophageal reflux disease) Plan: We will give PPI while here in the hospital. (5) HTN (hypertension) Plan: The patient cannot remember her antihypertensive medicationRight now. Her son will find out the name and let us know. Blood pressures at the bedside are 158/ 86. We will continue to monitor and have as needed's available. (6) Obesity Qualifiers: Body mass index: BMI 45.0-49.9 - Time Time Spent: 50 to 70 Minutes - Plan Summary Plan Summary: Patient is being admitted to the hospital for respiratory failure. If she is not appropriately admitted the risk is respiratory decompensation as an outpatient. Thank you
[2017-02-15] MEDS ORDERED: ENOXAPARIN SODIUM INJ 40 MG/0.4 ML DISP.SYRIN SUBCUT ONE (16:00)
[2017-02-15] MEDS ORDERED: PIPERACILLIN SODIUM/TAZOBACTAM 3.375 GM in NORMAL SALINE 100 ML IV SCH (18:00)
[2017-02-15] MEDS: IPRATROPIUM/ALBUTEROL 0.5-2.5 MG/3 ML AMPUL NEB PRN ×2 (18:34→23:40)
[2017-02-15] MEDS: PIPERACILLIN SODIUM/TAZOBACTAM 3.375 GM in DEXTROSE 5%-WATER 100 ML IV SCH ×2 (19:32→23:18)
[2017-02-15] MEDS: METHYLPREDNISOLONE INJ 40 MG/1 ML SDV IV SCH (22:02)
[2017-02-15] MEDS: BUDESONIDE/FORMOTEROL 160-4.5 MCG 60 PUFF/6 GM MDI IH SCH (22:02)
[2017-02-16 05:14] LABS: ABSOLUTE LYMPHOCYTES (AUTO) 0.4 10^3/uL (0.5-4.7); ABSOLUTE MONOCYTES (AUTO) 0.2 10^3/uL (0.1-1.4); BASOPHILS % (AUTO) 0.2 % (0-2); HEMATOCRIT 38.9 % (36.0-47.0); HEMOGLOBIN 12.7 g/dL (12.0-15.5); HGB HCT DIFFERENCE -0.8; LYMPHOCYTES % (AUTO) 6.1 % (13-45); MEAN CORPUSCULAR HEMOGLOBIN 28.7 pg (27.0-33.4); MEAN CORPUSCULAR HGB CONC 32.6 g/dL (32.0-36.0); MEAN CORPUSCULAR VOLUME 88 fl (80-97); MONOCYTES % (AUTO) 3.2 % (3-13); RED BLOOD COUNT 4.42 10^6/uL (3.72-5.28); RED CELL DISTRIBUTION WIDTH 15.9 % (11.5-14.0); SEGMENTED NEUTROPHILS % (AUTO) 90.5 % (42-78); WHITE BLOOD COUNT 6.6 10^3/uL (4.0-10.5)
[2017-02-16] MEDS: PIPERACILLIN SODIUM/TAZOBACTAM 3.375 GM in DEXTROSE 5%-WATER 100 ML IV SCH ×4 (05:21→23:55)
[2017-02-16 05:35] LABS: ANION GAP 11 (5-19); BLOOD UREA NITROGEN 17 mg/dL (7-20); CARBON DIOXIDE 31 mmol/L (22-30); CHLORIDE 98 mmol/L (98-107); CREATININE RESULT 1.01 mg/dL (0.52-1.25); POTASSIUM 4.7 mmol/L (3.6-5.0); SODIUM 139.7 mmol/L (137-145)
[2017-02-16 05:57] LABS: GLUCOSE 221 mg/dL (75-110)
[2017-02-16] MEDS: ASPIRIN 325 MG TABLET PO SCH (09:00)
[2017-02-16] MEDS: METHYLPREDNISOLONE INJ 40 MG/1 ML SDV IV SCH ×2 (09:01→21:11)
[2017-02-16] MEDS: LANSOPRAZOLE 30 MG TAB.RAP.DR PO SCH (09:01)
[2017-02-16] MEDS: ENOXAPARIN SODIUM INJ 40 MG/0.4 ML DISP.SYRIN SUBCUT SCH (09:02)
[2017-02-16] MEDS: BUDESONIDE/FORMOTEROL 160-4.5 MCG 60 PUFF/6 GM MDI IH SCH ×2 (09:03→21:11)
--- NOTE | 2017-02-16 09:23 | RADIOLOGY REPORT (SQ) ---
EXAM DESCRIPTION: CHEST PA/LAT COMPLETED DATE/TIME: 02/16/2017 8:09 am REASON FOR STUDY: sob COMPARISON: Chest films 02/15/2017, 08/26/2016, 07/24/2014 CT chest 03/18/2015 EXAM PARAMETERS: NUMBER OF VIEWS: two views TECHNIQUE: Digital Frontal and Lateral radiographic views of the chest acquired. RADIATION DOSE: NA LIMITATIONS: none FINDINGS: LUNGS AND PLEURA: No acute infiltrates. No pleural effusion. No pneumothorax. Mild increased interstitial markings around the periphery of both lungs right greater than left, stab le. MEDIASTINUM AND HILAR STRUCTURES: No masses or contour abnormalities. HEART AND VASCULAR STRUCTURES: Stable mild cardiomegaly. BONES: No acute findings. HARDWARE: Surgical clips right breast. OTHER: No other significant finding. IMPRESSION: No acute findings TECHNICAL DOCUMENTATION: JOB ID: [id number] [email or web address]- All Rights Reserved
[2017-02-16] MEDS: IPRATROPIUM/ALBUTEROL 0.5-2.5 MG/3 ML AMPUL NEB PRN ×2 (11:48→22:49)
--- NOTE | 2017-02-16 15:18 | PDOC PROGRESS REPORT ---
Subjective Progress Note for:: 02/16/17 Subjective:: This is a follow-up visit for COPD exacerbation. The patient was just received a nebulizer treatment. She is sitting on the side of her bed. She is a bit tachypneic. When asked how she feels however she says that she thinks that she is a bit better than yesterday. Chest x-ray was repeated and was negative. I have notified the patient that she has bacteria growing in her urine. Physical Exam Vital Signs: Temp Pulse Resp BP Pulse Ox 97.5 F 87 22 H 141/63 H 96 02/16/17 08:10 02/16/17 11:48 02/16/17 11:48 02/16/17 08:10 02/16/17 11:48 Intake & Output 02/15/17 02/16/17 02/17/17 06:59 06:59 06:59 Intake Total 720 Balance 720 Weight 112.3 kg GENERAL: This is a well-developed and nourished appearing obese white female resting on the side of her bed currently in no acute distress. HEART: Regular rate and rhythm. No murmurs, rubs or gallops. LUNGS: Coarse breath sounds bilaterally throughout with equal rise and fall of the chest. The patient is slightly tachypneic. ABDOMEN: Soft, nontender, nondistended, obese with normoactive bowel sounds EXTREMETIES: No clubbing, cyanosis. 1+ pitting edema bilaterally. 2+ peripheral pulses bilaterally. NEURO: Awake, alert and oriented 3. Cranial nerves II through XII are grossly intact. Skin: Patient's left lower extremity is less erythematous. Results Laboratory Results: 02/16/17 04:53 02/16/17 04:53 02/16/17 02/16/17 04:53 04:53 WBC 6.6 RBC 4.42 Hgb 12.7 Hct 38.9 MCV 88 MCH 28.7 MCHC 32.6 RDW 15.9 H Plt Count 199 Seg Neutrophils % 90.5 H Lymphocytes % 6.1 L Monocytes % 3.2 Eosinophils % 0.0 Basophils % 0.2 Absolute Neutrophils 6.0 Absolute Lymphocytes 0.4 L Absolute Monocytes 0.2 Absolute Eosinophils 0.0 Absolute Basophils 0.0 Sodium 139.7 Potassium 4.7 Chloride 98 Carbon Dioxide 31 H Anion Gap 11 BUN 17 Creatinine 1.01 Est GFR ( Amer) > 60 Est GFR (Non-Af Amer) 53 L Glucose 221 H Calcium 10.0 Magnesium 2.0 Impressions: Chest X-Ray 02/16/17 06:00 IMPRESSION: No acute findings Assessment & Plan - Diagnosis (1) Acute and chronic respiratory failure with hypoxia Plan: Patient is currently on oxygen via nasal cannula. Continue albuterol nebulizers every 4 hours for now. Continue the patient's Symbicort here in the hospital. Her respiratory failure is secondary to underlying COPD exacerbation (2) COPD exacerbation Plan: At this time the patient is receiving albuterol nebulizers. Continue Solu- Medrol and Zosyn. No addition of vancomycin for now. Monitor white blood cell count. (3) Cellulitis of left lower extremity Plan: Continue Zosyn. This is clinically improved. (4) GERD (gastroesophageal reflux disease) Plan: We will give PPI while here in the hospital. (5) HTN (hypertension) Plan: Continue HCTZ. (6) UTI (urinary tract infection) Qualifiers: Urinary tract infection type: acute cystitis Plan: Patient's urine is growing out gram-negative and gram-positive organisms. She is currently on Zosyn hopefully this will cover for the microorganisms in her urine as well. Await final identification and susceptibilities. (7) Obesity Qualifiers: Body mass index: BMI 45.0-49.9 Plan: Weight loss through dietary changes and exercise as tolerated. - Time Time Spent with patient: 15-24 minutes - Inpatient Certification Based on my medical assessment, after consideration of the patient's comorbidities, presenting symptoms, or acuity I expect that the services needed warrant INPATIENT care.: Yes Medical Necessity: Need Close Monitoring Due to Risk of Patient Decompensation
[2017-02-16] MEDS: GUAIFENESIN 600 MG TABLET.SA PO SCH (21:12)
[2017-02-17] MEDS: PIPERACILLIN SODIUM/TAZOBACTAM 3.375 GM in DEXTROSE 5%-WATER 100 ML IV SCH ×3 (05:03→17:44)
[2017-02-17 06:45] LABS: HEMATOCRIT 39.6 % (36.0-47.0); HEMOGLOBIN 12.7 g/dL (12.0-15.5); HGB HCT DIFFERENCE -1.5; MEAN CORPUSCULAR HEMOGLOBIN 28.8 pg (27.0-33.4); MEAN CORPUSCULAR VOLUME 90 fl (80-97); RED BLOOD COUNT 4.41 10^6/uL (3.72-5.28); RED CELL DISTRIBUTION WIDTH 15.8 % (11.5-14.0)
[2017-02-17 06:51] LABS: ANION GAP 8 (5-19); BLOOD UREA NITROGEN 25 mg/dL (7-20); CALCIUM 9.5 mg/dL (8.4-10.2); CARBON DIOXIDE 35 mmol/L (22-30); CHLORIDE 97 mmol/L (98-107); CREATININE RESULT 1.09 mg/dL (0.52-1.25); GLUCOSE 190 mg/dL (75-110); MAGNESIUM 2.1 mg/dL (1.6-2.3); POTASSIUM 4.6 mmol/L (3.6-5.0); SODIUM 139.9 mmol/L (137-145); WHITE BLOOD COUNT 13.6 10^3/uL (4.0-10.5)
[2017-02-17 07:30] LABS: BASOPHILS % (MANUAL) 0 % (0-2); EOSINOPHILS % (MANUAL) 0 % (0-6); TOTAL CELLS COUNTED 100
[2017-02-17 07:31] LABS: LYMPHOCYTES % (MANUAL) 4 % (13-45)
[2017-02-17 07:35] LABS: PLATELET CLUMPS PRESENT
[2017-02-17 07:36] LABS: ANISOCYTOSIS SLIGHT; HYPOCHROMASIA 1+; MICROCYTOSIS SLIGHT; POIKILOCYTOSIS 1+; POLYCHROMASIA SLIGHT
[2017-02-17 07:37] LABS: OVALOCYTES 1+; TEAR DROP CELLS SLIGHT
--- NOTE | 2017-02-17 07:46 | Physician Advisory Note ---
Physician Advisor ProgressNote .: Pursuant to the plan for [facility], I have reviewed the medical record for this patient. Physician Advisor Statement: Please consider documentin. "Suspected Acute bronchitis" - since not every COPD exac needs abx 2. "Acute on chr hypoxemic resp failure, w/reported labored breathing, mild- mod resp distress in ED, O2 sat 86% on her usual 2L O2" - with Ac Resp FAilure now, we need to document the associated O2 findings, usual O2 amount if any, and s/s that support this dx, since payers are looking for opportunities to say it wasn't really there. THanks! CK
[2017-02-17] MEDS: ASPIRIN 325 MG TABLET PO SCH (09:34)
[2017-02-17] MEDS: LANSOPRAZOLE 30 MG TAB.RAP.DR PO SCH (09:34)
[2017-02-17] MEDS: MAGNESIUM OXIDE 400 MG TABLET PO SCH (09:34)
[2017-02-17] MEDS: HYDROCHLOROTHIAZIDE 12.5 MG CAPSULE PO SCH (09:35)
[2017-02-17] MEDS: METHYLPREDNISOLONE INJ 40 MG/1 ML SDV IV SCH ×2 (09:36→22:21)
[2017-02-17] MEDS: GUAIFENESIN 600 MG TABLET.SA PO SCH ×2 (09:36→22:20)
[2017-02-17] MEDS: BUDESONIDE/FORMOTEROL 160-4.5 MCG 60 PUFF/6 GM MDI IH SCH ×2 (09:37→22:22)
[2017-02-17] MEDS: ENOXAPARIN SODIUM INJ 40 MG/0.4 ML DISP.SYRIN SUBCUT SCH (09:38)
[2017-02-17] MEDS: IPRATROPIUM/ALBUTEROL 0.5-2.5 MG/3 ML AMPUL NEB PRN (13:39)
[2017-02-17] MEDS ORDERED: FUROSEMIDE INJ/PF 40 MG/4 ML SDV IV ONE (15:52)
--- NOTE | 2017-02-17 21:32 | PDOC PROGRESS REPORT ---
Subjective Progress Note for:: 02/17/17 Subjective:: This is a follow-up visit for COPD exacerbation. Patient had no acute events overnight. She does state however that it is difficult for her to bring up any sputum and the cough is starting to become an irritant. Physical Exam Vital Signs: Temp Pulse Resp BP Pulse Ox 97.4 F 94 18 153/86 H 93 02/17/17 15:16 02/17/17 15:16 02/17/17 15:16 02/17/17 15:16 02/17/17 15:16 Intake & Output 02/16/17 02/17/17 02/18/17 06:59 06:59 06:59 Intake Total 720 2983 1530 Output Total 900 Balance 720 2983 630 Weight 112.3 kg 113.4 kg GENERAL: This is a well-developed and nourished appearing obese white female resting on the side of her bed currently in no acute distress. HEART: Regular rate and rhythm. No murmurs, rubs or gallops. LUNGS: Coarse breath sounds bilaterally throughout with equal rise and fall of the chest. The patient does not appear tachypneic at the moment. However she does have a cough. ABDOMEN: Soft, nontender, nondistended, obese with normoactive bowel sounds EXTREMETIES: No clubbing, cyanosis. 1+ pitting edema bilaterally. 2+ peripheral pulses bilaterally. NEURO: Awake, alert and oriented 3. Cranial nerves II through XII are grossly intact. Skin: Patient's left lower extremity slightly less erythematous today as compared to yesterday.. Results Laboratory Results: 02/17/17 06:07 02/17/17 06:07 02/17/17 02/17/17 06:07 06:07 WBC 13.6 H D RBC 4.41 Hgb 12.7 Hct 39.6 MCV 90 MCH 28.8 MCHC 32.0 RDW 15.8 H Plt Count 226 Seg Neutrophils % Not Reportable Lymphocytes % Not Reportable Monocytes % Not Reportable Eosinophils % Not Reportable Basophils % Not Reportable Absolute Neutrophils Not Reportable Absolute Lymphocytes Not Reportable Absolute Monocytes Not Reportable Absolute Eosinophils Not Reportable Absolute Basophils Not Reportable Sodium 139.9 Potassium 4.6 Chloride 97 L Carbon Dioxide 35 H Anion Gap 8 BUN 25 H Creatinine 1.09 Est GFR ( Amer) 59 L Est GFR (Non-Af Amer) 49 L Glucose 190 H Calcium 9.5 Magnesium 2.1 Impressions: Chest X-Ray 02/16/17 06:00 IMPRESSION: No acute findings Assessment & Plan - Diagnosis (1) Acute and chronic respiratory failure with hypoxia Plan: Patient is currently on oxygen via nasal cannula. Continue albuterol nebulizers every 4 hours for now. Continue the patient's Symbicort here in the hospital. Her respiratory failure is secondary to underlying COPD exacerbation. (2) COPD exacerbation Plan: At this time the patient is receiving albuterol nebulizers. Continue Solu- Medrol and Zosyn. No addition of vancomycin for now. Monitor white blood cell count. (3) Cellulitis of left lower extremity Plan: Continue Zosyn. This is clinically improved. (4) GERD (gastroesophageal reflux disease) Plan: We will give PPI while here in the hospital. (5) HTN (hypertension) Plan: Continue HCTZ. (6) UTI (urinary tract infection) Qualifiers: Urinary tract infection type: acute cystitis Plan: E. coli UTI. This is susceptible to Zosyn. We will continue this for now as this should cover anything in the lung, her cellulitis and her urinary tract infection. (7) Obesity Qualifiers: Body mass index: BMI 45.0-49.9 Plan: Weight loss through dietary changes and exercise as tolerated. - Time Time Spent with patient: 15-24 minutes Anticipated discharge: Home - Inpatient Certification Medical Necessity: Need Close Monitoring Due to Risk of Patient Decompensation
[2017-02-17] MEDS: BENZONATATE 100 MG CAPSULE PO SCH (22:21)
[2017-02-18] MEDS: PIPERACILLIN SODIUM/TAZOBACTAM 3.375 GM in DEXTROSE 5%-WATER 100 ML IV SCH ×5 (00:18→23:59)
[2017-02-18 05:22] LABS: HEMATOCRIT 38.9 % (36.0-47.0); HEMOGLOBIN 12.5 g/dL (12.0-15.5); HGB HCT DIFFERENCE -1.4; MEAN CORPUSCULAR HEMOGLOBIN 28.6 pg (27.0-33.4); MEAN CORPUSCULAR HGB CONC 32.1 g/dL (32.0-36.0); MEAN CORPUSCULAR VOLUME 89 fl (80-97); RED BLOOD COUNT 4.36 10^6/uL (3.72-5.28); RED CELL DISTRIBUTION WIDTH 15.8 % (11.5-14.0); WHITE BLOOD COUNT 13.3 10^3/uL (4.0-10.5)
[2017-02-18] MEDS: BENZONATATE 100 MG CAPSULE PO SCH ×3 (05:22→21:07)
[2017-02-18] MEDS: METHYLPREDNISOLONE INJ 40 MG/1 ML SDV IV SCH ×3 (05:22→21:07)
[2017-02-18 05:24] LABS: ANION GAP 7 (5-19); BLOOD UREA NITROGEN 31 mg/dL (7-20); CALCIUM 9.6 mg/dL (8.4-10.2); CHLORIDE 92 mmol/L (98-107); CREATININE RESULT 1.24 mg/dL (0.52-1.25); GLUCOSE 219 mg/dL (75-110); POTASSIUM 4.7 mmol/L (3.6-5.0); SODIUM 139.4 mmol/L (137-145)
[2017-02-18 05:34] LABS: BASOPHILS % (MANUAL) 0 % (0-2); EOSINOPHILS % (MANUAL) 0 % (0-6); LYMPHOCYTES % (MANUAL) 1 % (13-45); TOTAL CELLS COUNTED 100
[2017-02-18 05:36] LABS: ANISOCYTOSIS SLIGHT; OVALOCYTES SLIGHT; POIKILOCYTOSIS SLIGHT; TOXIC GRANULATION SLIGHT; TOXIC VACUOLATION PRESENT
[2017-02-18 05:49] LABS: CARBON DIOXIDE 40 mmol/L (22-30)
[2017-02-18] MEDS: MAGNESIUM OXIDE 400 MG TABLET PO SCH (10:00)
[2017-02-18] MEDS: ASPIRIN 325 MG TABLET PO SCH (10:01)
[2017-02-18] MEDS: LANSOPRAZOLE 30 MG TAB.RAP.DR PO SCH (10:01)
[2017-02-18] MEDS: HYDROCHLOROTHIAZIDE 12.5 MG CAPSULE PO SCH (10:01)
[2017-02-18] MEDS: GUAIFENESIN 600 MG TABLET.SA PO SCH ×2 (10:01→21:07)
[2017-02-18] MEDS: BUDESONIDE/FORMOTEROL 160-4.5 MCG 60 PUFF/6 GM MDI IH SCH ×2 (10:02→21:06)
[2017-02-18] MEDS: ENOXAPARIN SODIUM INJ 40 MG/0.4 ML DISP.SYRIN SUBCUT SCH (10:05)
[2017-02-18] MEDS: IPRATROPIUM/ALBUTEROL 0.5-2.5 MG/3 ML AMPUL NEB PRN (11:32)
--- NOTE | 2017-02-18 17:51 | PDOC PROGRESS REPORT ---
Subjective Progress Note for:: 02/18/17 Subjective:: This is a follow-up visit for COPD exacerbation. Patient had no acute events overnight. Her cough is much better with pearls. Physical Exam Vital Signs: Temp Pulse Resp BP Pulse Ox 98.0 F 83 22 H 147/76 H 94 02/18/17 16:29 02/18/17 16:29 02/18/17 16:29 02/18/17 16:29 02/18/17 16:29 Intake & Output 02/17/17 02/18/17 02/19/17 06:59 06:59 06:59 Intake Total 930 Output Total 1800 Balance -870 GENERAL: This is a well-developed and nourished appearing obese white female walking from the bathroom back to her bed in no acute distress. HEART: Regular rate and rhythm. No murmurs, rubs or gallops. LUNGS: Coarse breath sounds bilaterally throughout with equal rise and fall of the chest. The patient does not appear tachypneic at the moment. She then sits down and catches her breath and becomes tachypenic. ABDOMEN: Soft, nontender, nondistended, obese with normoactive bowel sounds EXTREMETIES: No clubbing, cyanosis. 1+ pitting edema bilaterally. 2+ peripheral pulses bilaterally. NEURO: Awake, alert and oriented 3. Cranial nerves II through XII are grossly intact. Skin: Patient's left lower extremity less erythematous Results Impressions: Chest X-Ray 02/16/17 06:00 IMPRESSION: No acute findings Assessment & Plan - Diagnosis (1) Acute and chronic respiratory failure with hypoxia Plan: Patient is currently on oxygen via nasal cannula. Continue albuterol nebulizers every 4 hours for now. Continue the patient's Symbicort here in the hospital. Her respiratory failure is secondary to underlying COPD exacerbation. (2) COPD exacerbation Plan: At this time the patient is receiving albuterol nebulizers. Continue Solu- Medrol and Zosyn. No addition of vancomycin for now. Monitor white blood cell count. (3) Cellulitis of left lower extremity Plan: Continue Zosyn. This is clinically improved. (4) GERD (gastroesophageal reflux disease) Plan: We will give PPI while here in the hospital. (5) HTN (hypertension) Plan: Continue HCTZ. (6) UTI (urinary tract infection) Qualifiers: Urinary tract infection type: acute cystitis Plan: E. coli UTI. This is susceptible to Zosyn. We will continue this for now as this should cover anything in the lung, her cellulitis and her urinary tract infection. (7) Obesity Qualifiers: Body mass index: BMI 45.0-49.9 Plan: Weight loss through dietary changes and exercise as tolerated. - Time Time Spent with patient: Less than 15 minutes - Inpatient Certification Medical Necessity: Need Close Monitoring Due to Risk of Patient Decompensation
[2017-02-19] MEDS: BENZONATATE 100 MG CAPSULE PO SCH ×3 (05:16→22:01)
[2017-02-19] MEDS: METHYLPREDNISOLONE INJ 40 MG/1 ML SDV IV SCH ×3 (05:17→22:01)
[2017-02-19] MEDS: PIPERACILLIN SODIUM/TAZOBACTAM 3.375 GM in DEXTROSE 5%-WATER 100 ML IV SCH ×4 (05:17→23:39)
[2017-02-19] MEDS: IPRATROPIUM/ALBUTEROL 0.5-2.5 MG/3 ML AMPUL NEB PRN ×2 (09:20→17:56)
[2017-02-19] MEDS: LANSOPRAZOLE 30 MG TAB.RAP.DR PO SCH (09:35)
[2017-02-19] MEDS: MAGNESIUM OXIDE 400 MG TABLET PO SCH (09:35)
[2017-02-19] MEDS: ASPIRIN 325 MG TABLET PO SCH (09:35)
[2017-02-19] MEDS: ENOXAPARIN SODIUM INJ 40 MG/0.4 ML DISP.SYRIN SUBCUT SCH (09:36)
[2017-02-19] MEDS: HYDROCHLOROTHIAZIDE 12.5 MG CAPSULE PO SCH (09:36)
[2017-02-19] MEDS: GUAIFENESIN 600 MG TABLET.SA PO SCH ×2 (09:36→22:01)
[2017-02-19] MEDS: BUDESONIDE/FORMOTEROL 160-4.5 MCG 60 PUFF/6 GM MDI IH SCH ×2 (09:37→22:02)
--- NOTE | 2017-02-19 17:48 | PDOC PROGRESS REPORT ---
Subjective Progress Note for:: 02/19/17 Subjective:: Reports her breathing is doing better. Physical Exam Vital Signs: Temp Pulse Resp BP Pulse Ox 97.4 F 88 24 H 133/62 H 96 02/19/17 11:51 02/19/17 14:00 02/19/17 11:51 02/19/17 11:51 02/19/17 11:51 Intake & Output 02/18/17 02/19/17 02/20/17 06:59 06:59 06:59 Intake Total 1330 103 Output Total 2500 Balance -1170 103 Weight 114.3 kg General appearance: PRESENT: no acute distress Eye exam: PRESENT: conjunctiva pink. ABSENT: scleral icterus Mouth exam: PRESENT: moist, tongue midline Neck exam: ABSENT: JVD Respiratory exam: PRESENT: wheezes - Few scattered expiratory wheezes.. ABSENT : rales, rhonchi Cardiovascular exam: PRESENT: RRR. ABSENT: diastolic murmur, rubs, systolic murmur GI/Abdominal exam: PRESENT: normal bowel sounds, soft. ABSENT: distended, guarding, mass, organolmegaly, rebound, tenderness Extremities exam: ABSENT: calf tenderness, clubbing, pedal edema Neurological exam: PRESENT: alert, awake, oriented to person, oriented to place , oriented to time, oriented to situation, CN II-XII grossly intact. ABSENT: motor sensory deficit Psychiatric exam: PRESENT: appropriate affect Skin exam: PRESENT: dry, intact, warm, other - Left leg with mild erythema over the left stevenson.. ABSENT: cyanosis, rash Results Impressions: Chest X-Ray 02/16/17 06:00 IMPRESSION: No acute findings Assessment & Plan - Diagnosis (1) Acute and chronic respiratory failure with hypoxia Is this a current diagnosis for this admission?: Yes Plan: Patient has improved and will continue with IV steroids, nebulizers, antibiotics. She continues to improve we can hopefully discharge home tomorrow. (2) COPD exacerbation Is this a current diagnosis for this admission?: Yes Plan: Patient is improving. Will continue with steroids, antibiotics, nebulizers. (3) Cellulitis of left lower extremity Is this a current diagnosis for this admission?: Yes Plan: Patient's leg is less erythematous today. (4) Obesity Qualifiers: Body mass index: BMI 45.0-49.9 Is this a current diagnosis for this admission?: Yes (5) UTI (urinary tract infection) Qualifiers: Urinary tract infection type: acute cystitis Is this a current diagnosis for this admission?: Yes Plan: Continue with Zosyn. (6) HTN (hypertension) Is this a current diagnosis for this admission?: Yes Plan: Blood pressure is under good control. - Time Time Spent with patient: 25-34 minutes - Inpatient Certification Medical Necessity: Need Close Monitoring Due to Risk of Patient Decompensation, Need for IV Antibiotics - Plan Summary Plan Summary: If she continues to improve she can probably be discharged home tomorrow.
[2017-02-20] MEDS: METHYLPREDNISOLONE INJ 40 MG/1 ML SDV IV SCH ×2 (05:41→14:21)
[2017-02-20] MEDS: BENZONATATE 100 MG CAPSULE PO SCH ×2 (05:41→14:48)
[2017-02-20] MEDS: PIPERACILLIN SODIUM/TAZOBACTAM 3.375 GM in DEXTROSE 5%-WATER 100 ML IV SCH ×2 (05:41→12:03)
[2017-02-20 06:54] LABS: HEMOGLOBIN 12.7 g/dL (12.0-15.5); HGB HCT DIFFERENCE -0.9; MEAN CORPUSCULAR HEMOGLOBIN 28.9 pg (27.0-33.4); MEAN CORPUSCULAR HGB CONC 32.5 g/dL (32.0-36.0); MEAN CORPUSCULAR VOLUME 89 fl (80-97); RED BLOOD COUNT 4.39 10^6/uL (3.72-5.28); RED CELL DISTRIBUTION WIDTH 15.6 % (11.5-14.0); WHITE BLOOD COUNT 11.9 10^3/uL (4.0-10.5)
[2017-02-20 07:09] LABS: BLOOD UREA NITROGEN 32 mg/dL (7-20); CALCIUM 9.5 mg/dL (8.4-10.2); CHLORIDE 91 mmol/L (98-107); CREATININE RESULT 1.04 mg/dL (0.52-1.25); GLUCOSE 215 mg/dL (75-110); POTASSIUM 4.9 mmol/L (3.6-5.0); SODIUM 138.4 mmol/L (137-145)
[2017-02-20 07:11] LABS: ANION GAP 7 (5-19)
[2017-02-20 07:20] LABS: CARBON DIOXIDE 40 mmol/L (22-30)
[2017-02-20 07:44] LABS: BASOPHILS % (MANUAL) 0 % (0-2); EOSINOPHILS % (MANUAL) 0 % (0-6); LYMPHOCYTES % (MANUAL) 6 % (13-45); TOTAL CELLS COUNTED 100
[2017-02-20 07:45] LABS: HYPOCHROMASIA SLIGHT; POIKILOCYTOSIS 1+
[2017-02-20 07:46] LABS: BURR CELLS 1+; OVALOCYTES SLIGHT
[2017-02-20] MEDS: IPRATROPIUM/ALBUTEROL 0.5-2.5 MG/3 ML AMPUL NEB PRN ×2 (09:06→14:33)
[2017-02-20] MEDS: ENOXAPARIN SODIUM INJ 40 MG/0.4 ML DISP.SYRIN SUBCUT SCH (10:15)
[2017-02-20] MEDS: MAGNESIUM OXIDE 400 MG TABLET PO SCH (10:16)
[2017-02-20] MEDS: GUAIFENESIN 600 MG TABLET.SA PO SCH (10:16)
[2017-02-20] MEDS: LANSOPRAZOLE 30 MG TAB.RAP.DR PO SCH (10:16)
[2017-02-20] MEDS: BUDESONIDE/FORMOTEROL 160-4.5 MCG 60 PUFF/6 GM MDI IH SCH (10:17)
[2017-02-20] MEDS: HYDROCHLOROTHIAZIDE 12.5 MG CAPSULE PO SCH (10:17)
[2017-02-20] MEDS: ASPIRIN 325 MG TABLET PO SCH (10:23)
[2017-02-20 14:29] VITALS: BP 163/63
--- NOTE | 2017-02-20 16:21 | PDOC DISCHARGE SUMMARY ---
General - Admit/Disc Date/PCP Admission Date/Primary Care Provider: 02/18/17 09:04 ASHOK WOOD MD - Discharge Diagnosis (1) Acute and chronic respiratory failure with hypoxia Is this a current diagnosis for this admission?: Yes Summary: Back to baseline. (2) COPD exacerbation Is this a current diagnosis for this admission?: Yes (3) Cellulitis of left lower extremity Is this a current diagnosis for this admission?: Yes Summary: Status post 6 days antibiotics. (4) GERD (gastroesophageal reflux disease) Summary: Continue home medicines. (5) HTN (hypertension) Is this a current diagnosis for this admission?: Yes Summary: Continue home medicines. (6) UTI (urinary tract infection) Is this a current diagnosis for this admission?: Yes Summary: Status post 6 days of antibiotics. (7) Obesity Is this a current diagnosis for this admission?: Yes Summary: Weight loss through dietary changes. - Additional Information Resuscitation Status: Do Not Resuscitate Discharge Diet: Diabetic Discharge Activity: Activity As Tolerated Home Medications: Albuterol Sulfate [Albuterol Sulfate 2.5mg/3 mL] 1 vial IH QIDP PRN 02/15/17 Albuterol Sulfate [Proair HFA] 2 puff IH Q4HP PRN 02/15/17 Aspirin [Aspirin 325 mg Tablet] 325 mg PO DAILY 02/15/17 Azithromycin [Zithromax] 250 mg PO ASDIR 02/15/17 Budesonide/Formoterol Fumarate [Symbicort HFA 160-4.5 mcg Inhaler 6 gm] 2 puff IH Q12 02/15/17 Fluticasone Propionate [Flonase Nasal [place] 50 Mcg/[place] 16 gm] 2 sprays NASL DAILYP PRN 02/15/17 Hydrochlorothiazide [Hydrodiuril 12.5 mg Capsule] 12.5 mg PO DAILY 02/15/17 Magnesium Oxide [Mag-Ox 400 mg Tablet] 400 mg PO DAILY 02/15/17 Methylprednisolone [Medrol Dosepack (4 mg/Tab) 21 Tab/Dosepak] 4 mg PO ASDIR Benzonatate [Tessalon Perles 100 mg Capsule] 100 mg PO Q8 #6 capsule 02/20/17 History of Present Illness History of Present Illness: DEIDRE BAXTER is a 77 year old white female with a past medical history significant for hypertension and COPD who presents to the service with complaints of shortness of breath and left lower extremity redness and swelling. The patient states that she is usually on oxygen at home at 2 L/min 24 hours a day. She states that over the last 2 days she has developed a dry cough and shortness of breath that has become progressively worse. She tried using her inhalers at home without any success. She contacted her primary care physician who prescribed her Zithromax and Solu-Medrol as an outpatient. The patient had only taken the medications for about a day when she felt worse and decided to come into the emergency room. In addition to this, the patient developed left lower extremity swelling or redness. She states she does not have a history of heart failure to account for her swelling but did have concerns that she could have a blood clot. She states that she has been eating and drinking well at home. Other than dyspnea on exertion and her left lower leg issues she has had no other troubles. Hospital Course Hospital Course: Patient was admitted to the hospital for acute on chronic respiratory failure. She was started on IV steroids at higher doses as well as antibiotics IV. She developed a urinary tract infection along with her cellulitis and presumed bronchitis versus pneumonia. Patient was maintained on oxygen. She is able to be weaned off of BiPAP. It took several days with the patient ultimately improved and her respiratory status and was back to baseline at discharge. While here she was on Zosyn covered for her urine as well as her leg and lungs. Her steroids were weaned down. The patient was sent out on the Medrol Dosepak that she initially came in with. Physical Exam Vital Signs: Temp Pulse Resp BP Pulse Ox 97.6 F 93 24 H 146/63 H 91 L 02/20/17 12:41 02/20/17 12:41 02/20/17 12:41 02/20/17 12:41 02/20/17 12:41 Intake & Output 02/19/17 02/20/17 02/21/17 06:59 06:59 06:59 Intake Total 1330 1345 53 Output Total 2500 5 Balance -1170 1340 53 Weight 114.3 kg 115 kg GENERAL: This is a well-developed and nourished appearing obese white female sitting on the side of her bed in no acute distress. HEART: Regular rate and rhythm. No murmurs, rubs or gallops. LUNGS: Diminished at the bases bilaterally throughout with equal rise and fall of the chest. ABDOMEN: Soft, nontender, nondistended, obese with normoactive bowel sounds EXTREMETIES: No clubbing, cyanosis. 1+ pitting edema bilaterally. 2+ peripheral pulses bilaterally. NEURO: Awake, alert and oriented 3. Cranial nerves II through XII are grossly intact. Skin: Patient's left lower extremity less erythematous Results Laboratory Results: 02/20/17 06:27 02/20/17 06:27 02/20/17 02/20/17 06:27 06:27 WBC 11.9 H RBC 4.39 Hgb 12.7 Hct 39.0 MCV 89 MCH 28.9 MCHC 32.5 RDW 15.6 H Plt Count 223 Seg Neutrophils % Not Reportable Lymphocytes % Not Reportable Monocytes % Not Reportable Eosinophils % Not Reportable Basophils % Not Reportable Absolute Neutrophils Not Reportable Absolute Lymphocytes Not Reportable Absolute Monocytes Not Reportable Absolute Eosinophils Not Reportable Absolute Basophils Not Reportable Sodium 138.4 Potassium 4.9 Chloride 91 L Carbon Dioxide 40 H* Anion Gap 7 BUN 32 H Creatinine 1.04 Est GFR ( Amer) > 60 Est GFR (Non-Af Amer) 51 L Glucose 215 H Calcium 9.5 Impressions: Chest X-Ray 02/16/17 06:00 IMPRESSION: No acute findings Qualifiers PATEINT BEING DISCHARGED WITH ANY OF THE FOLLOWING DIAGNOSIS?: No Plan Time Spent: Less than 30 Minutes
== END 2017-02-20 15:04 | disposition home or self-care (01) | DRG 190 ==
LOC: ER 10:50 → UNDOADMIN 14:48 → EH 14:48 → INTOOBSV 15:22 → EH 15:22 → 4S 16:51 → OBSVTOIN 02-18 09:04
PROVIDERS: ADMIT Hospitalist; ATTEND Hospitalist
PROC: 3E0F73Z Introduction of Anti-inflammatory into Respiratory Tract, Via Natural or Artificial Opening (ICD-10-PCS; principal; 2017-02-15)
DX: J44.1 Chronic obstructive pulmonary disease with (acute) exacerbation (principal); J96.21 Acute and chronic respiratory failure with hypoxia; L03.116 Cellulitis of left lower limb; Z68.42 Body mass index [BMI] 45.0-49.9, adult; N30.00 Acute cystitis without hematuria; K21.9 Gastro-esophageal reflux disease without esophagitis; B96.20 Unspecified Escherichia coli [E. coli] as the cause of diseases classified elsewhere; E66.9 Obesity, unspecified; I10 Essential (primary) hypertension; F17.210 Nicotine dependence, cigarettes, uncomplicated; Z99.81 Dependence on supplemental oxygen; Z79.82 Long term (current) use of aspirin; Z79.899 Other long term (current) drug therapy; Z86.711 Personal history of pulmonary embolism; Z90.710 Acquired absence of both cervix and uterus; Z90.49 Acquired absence of other specified parts of digestive tract; Z80.9 Family history of malignant neoplasm, unspecified
CPT/HCPCS: 36415; 71010; 71020; 80048; 80053; 81001; 82803; 83605; 83735; 85025; 85610; 87040; 87086; 87088; 87186; 93005; 93010; 93971; 94640; 96365; 96375; 99285; G0378; J1650; J1940; J2543; J2920; J2930; J3490; J7620

== ENCOUNTER 2017-10-26 08:14 | Day surgery (SDC) | payer MEDICARE ==
[~2017-10-26 08:14] MED LIST: CHONDR SU A NA/HYALUR INTRAOC KIT (SURGICARE) ONE; EPINEPHRINE INJ/PF 1 MG/1 ML AMPULE ONE; KETOROLAC TROMETHAMINE 0.45% 4 DROP/0.4 ML DROPERETTE OD PRN; LIDOCAINE 1% INJ-PF (10 MG/ML) 30 ML SDV ONE; TOBRAMYCIN SULFATE/DEXAMETH OPH OINTMENT 3.5 GM ONE
[2017-10-26] MEDS: CYCLOPENTOLATE 0.2%/PHENYLEPHRINE 1% OPH SOLN 2 ML OD PRN ×3 (08:30→09:06)
[2017-10-26] MEDS: TROPICAMIDE 1% OPH SOLN 3 ML OD PRN ×3 (08:30→09:06)
[2017-10-26] MEDS: BESIFLOXACIN HCL 0.6% OPH SUSP 5 ML BOTTLE OD PRN ×3 (08:31→09:41)
[2017-10-26] MEDS: TETRACAINE HCL 0.5% OPH SOLN 0.6 ML DROPERETTE OD PRN ×3 (08:32→09:17)
[2017-10-26] MEDS ORDERED: MIDAZOLAM 2 MG/2 ML INJ ONE ×2 (09:04→09:18)
[2017-10-26] MEDS ORDERED: FENTANYL CITRATE INJ/PF 100 MCG/2 ML AMPUL ONE (09:05)
== END 2017-10-26 10:07 | disposition home or self-care (01) ==
LOC: SC 08:14
PROVIDERS: ATTEND Ophthalmology
DX: H25.11 Age-related nuclear cataract, right eye (principal); F17.210 Nicotine dependence, cigarettes, uncomplicated; J44.9 Chronic obstructive pulmonary disease, unspecified; I10 Essential (primary) hypertension; Z86.718 Personal history of other venous thrombosis and embolism; Z79.899 Other long term (current) drug therapy; Z79.01 Long term (current) use of anticoagulants; Z99.81 Dependence on supplemental oxygen
CPT/HCPCS: 66984; V2630; J2250; J3490 ×3; A9270; J0171; J3010; 142

== ENCOUNTER 2017-11-09 07:06 | Day surgery (SDC) | payer MEDICARE ==
[~2017-11-09 07:06] MED LIST changes: -CHONDR SU A NA/HYALUR INTRAOC KIT (SURGICARE) ONE; -EPINEPHRINE INJ/PF 1 MG/1 ML AMPULE ONE; -KETOROLAC TROMETHAMINE 0.45% 4 DROP/0.4 ML DROPERETTE OD PRN; +KETOROLAC TROMETHAMINE 0.45% 4 DROP/0.4 ML DROPERETTE OS PRN; -LIDOCAINE 1% INJ-PF (10 MG/ML) 30 ML SDV ONE; -TOBRAMYCIN SULFATE/DEXAMETH OPH OINTMENT 3.5 GM ONE
[2017-11-09] MEDS: TROPICAMIDE 1% OPH SOLN 3 ML OS PRN ×4 (07:40→08:01)
[2017-11-09] MEDS: CYCLOPENTOLATE 0.2%/PHENYLEPHRINE 1% OPH SOLN 2 ML OS PRN ×3 (07:40→08:02)
[2017-11-09] MEDS: BESIFLOXACIN HCL 0.6% OPH SUSP 5 ML BOTTLE OS PRN ×3 (07:40→08:37)
[2017-11-09] MEDS: TETRACAINE HCL 0.5% OPH SOLN 0.6 ML DROPERETTE OS PRN ×3 (07:41→08:16)
[2017-11-09] MEDS ORDERED: LIDOCAINE 1% INJ-PF (10 MG/ML) 30 ML SDV ONE (07:52)
[2017-11-09] MEDS ORDERED: TOBRAMYCIN SULFATE/DEXAMETH OPH OINTMENT 3.5 GM ONE (07:52)
[2017-11-09] MEDS ORDERED: CHONDR SU A NA/HYALUR INTRAOC KIT (SURGICARE) ONE (07:52)
[2017-11-09] MEDS ORDERED: EPINEPHRINE INJ/PF 1 MG/1 ML AMPULE ONE (07:52)
[2017-11-09] MEDS ORDERED: ALBUTEROL SULFATE 0.083% NEB 2.5 MG/3 ML AMPUL NEB ONE (07:54)
[2017-11-09] MEDS ORDERED: MIDAZOLAM 2 MG/2 ML INJ ONE ×2 (08:00→08:21)
[2017-11-09] MEDS ORDERED: FENTANYL CITRATE INJ/PF 100 MCG/2 ML AMPUL ONE (08:00)
== END 2017-11-09 09:10 | disposition home or self-care (01) ==
LOC: SC 07:06
PROVIDERS: ATTEND Ophthalmology
DX: H25.12 Age-related nuclear cataract, left eye (principal); F17.210 Nicotine dependence, cigarettes, uncomplicated; J44.9 Chronic obstructive pulmonary disease, unspecified; I10 Essential (primary) hypertension; G47.30 Sleep apnea, unspecified; Z79.899 Other long term (current) drug therapy; Z86.718 Personal history of other venous thrombosis and embolism; Z85.3 Personal history of malignant neoplasm of breast; Z79.01 Long term (current) use of anticoagulants; Z79.51 Long term (current) use of inhaled steroids
CPT/HCPCS: 66984; V2630; J2250; J3490 ×3; A9270 ×2; J0171; J3010; 142

== ENCOUNTER 2020-01-20 12:40 | Emergency (ER) | payer MEDICARE ==
[2020-01-20] MEDS ORDERED: MORPHINE SULFATE 10 MG/ML INJ IV ONE (14:42)
--- NOTE | 2020-01-20 14:51 | RADIOLOGY REPORT (SQ) ---
EXAM DESCRIPTION: CHEST SINGLE VIEW IMAGES COMPLETED DATE/TIME: 01/20/2020 2:06 pm REASON FOR STUDY: bed 6 short of breath COMPARISON: Chest radiograph 02/16/2017 NUMBER OF VIEWS: One view. TECHNIQUE: Single frontal radiographic view of the chest acquired. LIMITATIONS: None. FINDINGS: LUNGS AND PLEURA: Low lung volumes with resultant bronchovascular crowding. No focal cons olidation, pleural effusion, or pneumothorax. MEDIASTINUM AND HILAR STRUCTURES: No masses. Contour normal. HEART AND VASCULAR STRUCTURES: Heart normal in size. Normal vasculature. BONES: No acute findings. HARDWARE: None in the chest. OTHER: No other significant finding. Surgical clips project over the right axilla. IMPRESSION: Hypoventilated exam without evidence of acute pulmonary process. TECHNICAL DOCUMENTATION: JOB ID: [id number] 2010 [employer]- All Rights Reserved Reading location - IP/workstation name: [email or web address]
[2020-01-20 15:23] LABS: ABSOLUTE EOSINOPHILS # (AUTO) 0.1 10^3/uL (0.0-0.6); ABSOLUTE MONOCYTES (AUTO) 0.6 10^3/uL (0.1-1.4); ABSOLUTE NEUT (AUTO) 7.7 10^3/uL (1.7-8.2); BASOPHILS % (AUTO) 0.4 % (0-2); EOSINOPHILS % (AUTO) 1.1 % (0-6); HEMATOCRIT 40.6 % (36.0-47.0); HEMOGLOBIN 13.2 g/dL (12.0-15.5); LYMPHOCYTES % (AUTO) 10.6 % (13-45); MEAN CORPUSCULAR HEMOGLOBIN 30.1 pg (27.0-33.4); MEAN CORPUSCULAR HGB CONC 32.6 g/dL (32.0-36.0); MEAN CORPUSCULAR VOLUME 92 fl (80-97); MONOCYTES % (AUTO) 6.7 % (3-13); PLATELET COUNT 271 10^3/uL (150-450); RED CELL DISTRIBUTION WIDTH 15.1 % (11.5-14.0); SEGMENTED NEUTROPHILS % (AUTO) 81.2 % (42-78); TOTAL CELLS COUNTED % (AUTO) 100 %; WHITE BLOOD COUNT 9.5 10^3/uL (4.0-10.5)
[2020-01-20 15:34] LABS: ALBUMIN 4.3 g/dL (3.5-5.0); ALKALINE PHOSPHATASE 113 U/L (38-126); ANION GAP 8 (5-19); ASPARTATE AMINO TRANSFERASE 28 U/L (14-36); BILIRUBIN,DIRECT 0.2 mg/dL (0.0-0.4); BILIRUBIN,TOTAL 0.6 mg/dL (0.2-1.3); BLOOD UREA NITROGEN 19 mg/dL (7-20); CALCIUM 10.2 mg/dL (8.4-10.2); CARBON DIOXIDE 37 mmol/L (22-30); CHLORIDE 93 mmol/L (98-107); CREATINE KINASE 51 U/L (30-135); GLUCOSE 127 mg/dL (75-110); POTASSIUM 4.7 mmol/L (3.6-5.0); TOTAL PROTEIN 7.4 g/dL (6.3-8.2)
[2020-01-20 15:44] LABS: CREATINE KINASE MB 0.79 ng/mL (<4.55)
[2020-01-20 15:45] LABS: TROPONIN I < 0.012 ng/mL
--- NOTE | 2020-01-20 15:46 | RADIOLOGY REPORT (SQ) ---
EXAM DESCRIPTION: HIP BILATERAL IMAGES COMPLETED DATE/TIME: 01/20/2020 3:15 pm REASON FOR STUDY: Pain COMPARISON: None. NUMBER OF VIEWS: Three views pelvis and bilateral hips. LIMITATIONS: Limiting osteopenia and overlying soft tissues. FINDINGS: No gross displaced hip fracture. Hip joint spaces look relatively maintained with mild de generative spurring suggested. Poor assessment of the upper pelvis due to the limitations described above. OTHER: No other significant finding. IMPRESSION: No hip fracture. Limited assessment for pelvic fracture. Limiting osteopenia. TECHNICAL DOCUMENTATION: JOB ID: [id number] Reading location - IP/workstation name: [email or web address]
--- NOTE | 2020-01-20 17:26 | ER Document Report ---
ED General - General Chief Complaint: Shortness Of Breath Stated Complaint: DIFFICULTY BREATHING/HIP PAIN Time Seen by Provider: 01/20/20 14:11 Primary Care Provider: ASHOK WOOD MD [Primary Care Provider] - Follow up as needed TRAVEL OUTSIDE OF THE [place] IN LAST 30 DAYS: No - HPI Notes: Patient is an 80-year-old female who presents to the emergency department for evaluation. She states initially that she is short of breath, but states this is been going on for over a month. She states that she attributes this shortness of breath to the increased pain in her bilateral hips. She states this is chronic but worsening. On further questioning the patient does have a prescription for Ultram for this pain, but states that her doctor is not going to write it any longer. She has had no fevers. No chills. No cough. No chest pain. She states she short of breath with exertion, states that seems slightly worse than normal, but believes that if her pain were appropriately addressed, it would not be as much of an issue. Eventually she tells me she is primarily h ere because of her bilateral hip pain. - Related Data Allergies/Adverse Reactions: No Known Allergies Allergy (Verified 01/20/20 13:38) Past Medical History - General Information source: Patient - Social History Smoking Status: Former Smoker Family History: Malignancy Patient has homicidal ideation: No - Past Medical History Cardiac Medical History: Reports: Hx Hypertension, Hx Pulmonary Embolism Denies: Hx Atrial Fibrillation, Hx Congestive Heart Failure, Hx Coronary Artery Disease, Hx Heart Attack, Hx Hypercholesterolemia, Hx Peripheral Vascular Disease, Hx Heart Murmur Pulmonary Medical History: Reports: Hx Bronchitis, Hx COPD, Hx Pneumonia Denies: Hx Asthma, Hx Respiratory Failure, Hx Sleep Apnea, Hx Tuberculosis Neurological Medical History: Denies: Hx Cerebrovascular Accident, Hx Seizures Renal/ Medical History: Denies: Hx Peritoneal Dialysis Malignancy Medical History: Denies: Hx Lung Cancer GI Medical History: Reports: Hx Gastroesophageal Reflux Disease - at one point was taking Tums but not anymore. Denies: Hx Crohn's Disease, Hx Hepatitis, Hx Hiatal Hernia, Hx Irritable Bowel, Hx Liver Failure, Hx Pancreatitis, Hx Ulcer Musculoskeletal Medical History: Reports Hx Arthritis - Lower back, Denies Hx Fibromyalgia, Denies Hx Muscular Dystrophy Psychiatric Medical History: Denies: Hx Depression Traumatic Medical History: Denies: Hx Fractures Infectious Medical History: Denies: Hx Hepatitis Past Surgical History: Reports: Hx Breast Surgery - R lumpectomy, Hx Cholecystectomy, Hx Hysterectomy, Hx Mastectomy - RIGHT. Denies: Hx Appendectomy, Hx Bowel Surgery, Hx Section, Hx Colostomy, Hx Coronary Artery Bypass Graft, Hx Gastric Bypass Surgery, Hx Herniorrhaphy, Hx Open Heart Surgery, Hx Pacemaker, Hx Tubal Ligation - Immunizations Hx Diphtheria, Pertussis, Tetanus Vaccination: Yes Hx Pneumococcal Vaccination: 06/24/11 Review of Systems - Review of Systems Constitutional: No symptoms reported EENT: No symptoms reported Cardiovascular: No symptoms reported Respiratory: See HPI Gastrointestinal: No symptoms reported Genitourinary: No symptoms reported Musculoskeletal: See HPI Skin: No symptoms reported Neurological/Psychological: No symptoms reported Physical Exam - Vital signs Vitals: Temp Pulse Resp BP Pulse Ox 98.7 F 104 H 22 H 140/78 H 96 01/20/20 13:00 01/20/20 13:00 01/20/20 13:00 01/20/20 13:00 01/20/20 13:00 - Notes Notes: This is an obese 80-year-old female who appears her stated age, no acute distress. She is sitting upright, normal respiratory rate, normal respiratory effort. Vital signs reviewed, please refer to chart. Head is normocephalic, atraumatic. Pupils equal round, reactive to light. Neck is supple without meningismus. Heart is regular rate and rhythm. Lungs reveal slightly diminished breath sounds but no wheezes, rales, rhonchi. Abdomen is obese, nontender, normoactive bowel sounds throughout. Extremities without cyanosis, clubbing. Posterior calves are nontender. Chronic appearing skin thickening and erythema to the anterior distal shins. Peripheral pulses are equal. Skin is warm and dry. Examination of the bilateral hips yields no obvious deformity. No leg shortening or external rotation. She has pain with passive range of motion. Tenderness over bilateral greater trochanters. Patient is awake, alert, neurological exam is nonfocal. Course - Vital Signs Vital signs: Temp Pulse Resp BP Pulse Ox 98.7 F 104 H 19 159/84 H 100 01/20/20 13:00 01/20/20 13:00 01/20/20 16:01 01/20/20 16:00 01/20/20 16:01 - Laboratory Result Diagrams: 01/20/20 14:45 01/20/20 14:45 Laboratory results interpreted by me: 01/20/20 01/20/20 14:45 14:45 RDW 15.1 H Lymph % (Auto) 10.6 L Seg Neutrophils % 81.2 H Chloride 93 L Carbon Dioxide 37 H Est GFR (MDRD) Non-Af 55 L Glucose 127 H - Diagnostic Test Radiology reviewed: Reports reviewed Radiology results interpreted by me: 01/20/20 17:24 Chest X-Ray 01/20/20 13:48 IMPRESSION: Hypoventilated exam without evidence of acute pulmonary process. Hip X-Ray 01/20/20 14:42 IMPRESSION: No hip fracture. Limited assessment for pelvic fracture. Limiting osteopenia. - EKG Interpretation by Me Additional EKG results interpreted by me: 01/20/20 17:24 Sinus mechanism with a rate of 96 bpm. First-degree AV block. No acute ST changes concerning for ischemia or infarction. No old studies immediately available for comparison. Discharge - Discharge Clinical Impression: Chronic hip pain, bilateral, Dyspnea Condition: Stable Disposition: HOME, SELF-CARE Instructions: Osteoarthritis ([facility]) Additional Instructions: Take [place] as needed for severe pain. Please watch for dizziness, drowsiness, constipation with this medication. You need to follow-up with your primary care provider, request possible referral onto orthopedics for chronic management of this chronic pain. In regards to your dyspnea, no obvious cause was found. Discussed this with your primary care provider as well. Return to the emergency department with worsening or new concerning symptoms of any sort. Referrals: ASHOK WOOD MD [Primary Care Provider] - Follow up as needed
[2020-01-20] MEDS ORDERED: HYDROCODONE/ACETAMINOPHEN 5-325 MG (6 TAB/ER DISP) PO PRN (17:27)
[2020-01-20 17:29] LABS: APPEARANCE,URINE CLOUDY; BILIRUBIN,URINE NEGATIVE (NEGATIVE); COLOR,URINE YELLOW; GLUCOSE, URINE NEGATIVE (NEGATIVE); KETONES,URINE NEGATIVE (NEGATIVE); LEUKOCYTE ESTERASE,URINE LARGE (NEGATIVE); NITRITE,URINE POSITIVE (NEGATIVE); PROTEIN,URINE 30 mg/dL (NEGATIVE); URINE SPECIFIC GRAVITY 1.015; UROBILINOGEN,URINE NEGATIVE mg/dL (<2.0)
[2020-01-20 18:21] VITALS: BP 158/80
--- NOTE | 2020-01-20 20:27 | EKG REPORT ---
SEVERITY:- NORMAL ECG - SINUS RHYTHM : Confirmed by: Stephania Haynes 20-Jan-2020 20:26:31
== END 2020-01-20 18:21 | disposition home or self-care (01) ==
LOC: ER 12:40
DX: M25.551 Pain in right hip (principal); M25.552 Pain in left hip; G89.29 Other chronic pain; Z79.899 Other long term (current) drug therapy; J44.9 Chronic obstructive pulmonary disease, unspecified; L53.9 Erythematous condition, unspecified; R23.4 Changes in skin texture; R06.02 Shortness of breath; M85.80 Other specified disorders of bone density and structure, unspecified site; I44.0 Atrioventricular block, first degree; I10 Essential (primary) hypertension; Z87.01 Personal history of pneumonia (recurrent); Z87.891 Personal history of nicotine dependence
CPT/HCPCS: 93005; 99285; 96374; 36415; 87040; 82553; 82550; 85025; 80053; 81001; 84484; 71045; 73522; 93010; J2270; A9270